=== PATIENT | male | born 1970 | race African-American/Black ===

== ENCOUNTER 2016-08-08 17:59 | Observation (INO) | payer OTHER ==
[~2016-08-08] VITALS: Ht 170.2 cm; Wt 206.3 kg
[~2016-08-08 17:59] MED LIST: ADVAIR; ADVAIR 100/501 DISK IH; ADVAIR HFA120 INHALA IH; ALBUTEROL17 GM; ASPIR 8181 M1 PO; CARVEDILOL12.5 MG PO; CEFTIN500 MG PO; CODEINE-GUAIFE120 ML PO; COMBIVENT INH14.7 GM; COMBIVENT RESPIM4 GM IH; DOXYCYCLINE HY100 MG PO; FORADIL AEROLI12 MCG IH; FURO40I IV; FUROSEMIDE40 MG PO; HYCODAN SYRUP480 ML PO; INDOMETHACIN50 MG PO; KLOR-CON 1010 ME1 PO; LASIX40 MG PO; LISINOPRIL5 MG PO; Norvasc PO; PERCOCET 10-321 EACH; PERCOCET 5/31 TABLET PO; POTASSIUM CHLO10 ME3 PO; PREDNISONE10 MG PO; PROVENTIL,2.5 MG/3 M IH; SPIRIVA1 INHALATI IH; ZOCOR5 MG PO; Zithromax PO
[2016-08-08 19:13] LABS: HEMATOCRIT 45.9 % (38.0-50.0); MCHC 28.8 G/DL (30.0-36.0); MCV 86.8 FL (86-99); MEAN PLAT.VOLUME 10.9 uM^3 (9.0-12.4); PLATELET COUNT 366 K/uL (156-360); RBC DIS.WIDTH-CV 17.6 % (11.8-14.6); RBC DIS.WIDTH-SD 55.9 % (39-53); RED BLOOD COUNT 5.29 M/uL (4.00-5.50); WHITE BLOOD COUNT 11.8 K/uL (4.1-10.2)
[2016-08-08 19:32] LABS: CHLORIDE 101 mEq/L (99-109); POTASSIUM 3.9 mEq/L (3.7-5.4); SODIUM 140 mEq/L (136-147)
[2016-08-08 19:34] LABS: GLUCOSE 105 mg/dL (70-99)
[2016-08-08 19:35] LABS: ANION GAP 9 MEQ/L (2-14)
[2016-08-08 19:38] LABS: GFR ESTIMATE (CALCULATED) > 59 mL/min/
[2016-08-08 19:39] LABS: UREA NITROGEN (BUN) 14 mg/dL (9-23)
[2016-08-08 19:43] LABS: TROP-I INTERPRETATION NEGATIVE; TROPONIN-I 0.04 ng/mL (0.0-0.30)
[2016-08-08] MEDS ORDERED: SPIRIVA1 INHALATI IH (21:24)
[2016-08-08] MEDS ORDERED: LIPITOR40 MG PO (21:24)
[2016-08-08] MEDS ORDERED: POTASSIUM CHLO10 ME4 PO (21:25)
[2016-08-08] MEDS ORDERED: PERCOCET 10/1 TABLET PO (21:25)
[2016-08-08] MEDS ORDERED: COLCRYS0.6 MG PO (21:26)
[2016-08-08] MEDS ORDERED: FUROSEMIDE40 MG PO (21:26)
[2016-08-08] MEDS ORDERED: ATENOLOL50 MG PO (21:26)
[2016-08-08] MEDS ORDERED: VENTOLIN HFA18 GM IH (21:27)
[2016-08-08] MEDS ORDERED: SYMBICORT60 INHALAT IH (21:27)
[2016-08-09 02:04] VITALS: BP 136/89
[2016-08-09 02:39] LABS: D-DIMER ELISA 0.76 mg/L FEU (< 0.57)
[2016-08-09 02:48] LABS: TROP-I INTERPRETATION NEGATIVE; TROPONIN-I 0.03 ng/mL (0.0-0.30)
[2016-08-09 07:48] VITALS: BP 134/76
[2016-08-09 10:15] LABS: TROP-I INTERPRETATION NEGATIVE; TROPONIN-I < 0.01 ng/mL (0.0-0.30)
[2016-08-09 11:49] LABS: POINT-OF-CARE METER ID UU14149397
[2016-08-09 12:00] VITALS: BP 160/97
[2016-08-09] MEDS ORDERED: PREDNISONE20 MG PO (15:50)
[2016-08-09] MEDS ORDERED: LEVOFLOXACIN500 MG PO (15:50)
[2016-08-09 16:00] VITALS: BP 161/77
[2016-08-09 16:57] LABS: POINT-OF-CARE METER ID UU14149397
== END 2016-08-09 18:38 | disposition home or self-care (01) ==
LOC: EME 17:59 → EDOF 08-09 00:01 → 3EAST 08-09 01:25
PROVIDERS: Emergency Medicine; Internal Medicine
DX: J20.9 Acute bronchitis, unspecified (principal); J44.9 Chronic obstructive pulmonary disease, unspecified; R09.02 Hypoxemia; F12.90 Cannabis use, unspecified, uncomplicated; E66.2 Morbid (severe) obesity with alveolar hypoventilation; Z68.45 Body mass index [BMI] 70 or greater, adult; Z99.81 Dependence on supplemental oxygen; I10 Essential (primary) hypertension; G47.33 Obstructive sleep apnea (adult) (pediatric); I25.5 Ischemic cardiomyopathy; J45.909 Unspecified asthma, uncomplicated; Z87.891 Personal history of nicotine dependence
CPT/HCPCS: 71010; 80048; 82948; 83605; 84484; 85027; 85379; 87040; 93005; 94640; 94640 76; 94799; 99202; 99281; 99285; G0378; G8978 GP CI; G8979 GP CH; J1650; J1956; J7512

== ENCOUNTER 2017-06-03 04:50 | Inpatient (IN) | payer OTHER ==
[~2017-06-03] VITALS: Ht 170.2 cm; Wt 196.4 kg
[~2017-06-03 04:50] MED LIST changes: +ATENOLOL50 MG PO; +COLCRYS0.6 MG PO; +LEVOFLOXACIN500 MG PO; +LIPITOR40 MG PO; +PERCOCET 10/1 TABLET PO; +POTASSIUM CHLO10 ME4 PO; +PREDNISONE20 MG PO; +PROAIR HFA8.5 GM IH; +SYMBICORT60 INHALAT IH
[2017-06-03 05:34] LABS: HEMATOCRIT 42.7 % (38.0-50.0); HEMOGLOBIN 12.9 G/DL (12.5-16.6); MCH 26.3 PG (29.0-34.0); MCHC 30.2 G/DL (30.0-36.0); PLATELET COUNT 448 K/uL (156-360); RBC DIS.WIDTH-SD 50.7 % (39-53); RED BLOOD COUNT 4.91 M/uL (4.00-5.50); WHITE BLOOD COUNT 10.2 K/uL (4.1-10.2)
[2017-06-03 05:43] LABS: ALBUMIN 3.1 g/dL (3.2-4.8); CHLORIDE 106 mEq/L (99-109); POTASSIUM 3.9 mEq/L (3.7-5.4); SODIUM 143 mEq/L (136-147)
[2017-06-03 05:45] LABS: GLUCOSE 130 mg/dL (70-99); TOTAL PROTEIN 7.6 g/dL (6.4-8.3)
[2017-06-03 05:47] LABS: TOTAL BILIRUBIN 0.2 mg/dL (0.0-1.0)
[2017-06-03 05:49] LABS: ALKALINE PHOSPHATASE 79 IU/L (3-129); CREATININE 1.1 mg/dL (0.6-1.3); GFR ESTIMATE (CALCULATED) > 59 mL/min/ (58.99-99999)
[2017-06-03 05:50] LABS: UREA NITROGEN (BUN) 11 mg/dL (9-23)
[2017-06-03 05:51] LABS: AST (GOT) 10 IU/L (2-34)
[2017-06-03 05:52] LABS: ALT (GPT) 8 IU/L (3-49)
[2017-06-03 05:56] LABS: TROP-I INTERPRETATION NEGATIVE; TROPONIN-I 0.02 ng/mL (0.0-0.30)
[2017-06-03] MEDS ORDERED: LISINOPRIL10 MG PO (10:11)
[2017-06-03] MEDS ORDERED: PANTOPRAZOLE SO40 MG PO (10:12)
[2017-06-03] MEDS ORDERED: GABAPENTIN800 MG PO (10:12)
[2017-06-03] MEDS ORDERED: METFORMIN HCL500 MG PO (10:13)
[2017-06-03 12:29] LABS: TROP-I INTERPRETATION NEGATIVE; TROPONIN-I 0.02 ng/mL (0.0-0.30)
[2017-06-03 13:09] VITALS: BP 144/73
[2017-06-03 15:10] VITALS: BP 157/85
[2017-06-03 19:27] LABS: TROP-I INTERPRETATION NEGATIVE; TROPONIN-I 0.03 ng/mL (0.0-0.30)
[2017-06-03 20:00] VITALS: BP 144/66
[2017-06-04] VITALS (7 sets, daily range): BP systolic 131–171; BP diastolic 58–90
[2017-06-04 07:01] LABS: HEMATOCRIT 42.9 % (38.0-50.0); HEMOGLOBIN 12.5 G/DL (12.5-16.6); MCH 25.8 PG (29.0-34.0); MCHC 29.1 G/DL (30.0-36.0); MCV 88.5 FL (86-99); PLATELET COUNT 393 K/uL (156-360); RBC DIS.WIDTH-CV 16.3 % (11.8-14.6); RBC DIS.WIDTH-SD 52.8 % (39-53); RED BLOOD COUNT 4.85 M/uL (4.00-5.50); WHITE BLOOD COUNT 12.5 K/uL (4.1-10.2)
[2017-06-04 07:19] LABS: INTER. NORMALIZED RATIO 1.1
[2017-06-04 07:22] LABS: PTT 29.4 SEC (25-37)
[2017-06-04 07:25] LABS: CHLORIDE 102 MEQ/L (99-109); GFR ESTIMATE (CALCULATED) > 59 mL/min/ (58.99-99999); GLUCOSE 121 mg/dL (70-99); POTASSIUM 4.5 MEQ/L (3.7-5.4); SODIUM 143 MEQ/L (136-147); UREA NITROGEN (BUN) 12 mg/dL (9-23)
[2017-06-05 03:45] VITALS: BP 154/71
[2017-06-05 07:13] LABS: CHLORIDE 99 MEQ/L (99-109); CREATININE 1.3 MG/DL (0.6-1.3); GFR ESTIMATE (CALCULATED) > 59 mL/min/ (58.99-99999); GLUCOSE 169 mg/dL (70-99); POTASSIUM 4.4 MEQ/L (3.7-5.4); SODIUM 139 MEQ/L (136-147); UREA NITROGEN (BUN) 15 mg/dL (9-23)
[2017-06-05 08:36] VITALS: BP 112/60
[2017-06-05 08:37] LABS: BASOPHIL (%) 0.3 % (0-1); BASOPHIL COUNT 0.1 K/uL (0-0.1); EOSINOPHIL (%) 0.3 % (0-5); EOSINOPHIL COUNT 0.1 K/uL (0-0.3); HEMATOCRIT 41.6 % (38.0-50.0); HEMOGLOBIN 12.1 G/DL (12.5-16.6); IMMATURE GRANULOCYTE (%) 0.4 % (0.0-0.7); LYMPHOCYTE (%) 11.5 % (15-42); LYMPHOCYTE COUNT 1.9 K/uL (1.0-2.8); MCH 25.3 PG (29.0-34.0); MCHC 29.1 G/DL (30.0-36.0); MONOCYTE (%) 12.8 % (3-12); MONOCYTE COUNT 2.1 K/uL (0-0.8); NEUTROPHIL (%) 74.7 % (45-76); NEUTROPHIL COUNT 12.5 K/uL (1.8-6.4); PLATELET COUNT 405 K/uL (156-360); RBC DIS.WIDTH-CV 15.7 % (11.8-14.6); RBC DIS.WIDTH-SD 50.4 % (39-53); RED BLOOD COUNT 4.78 M/uL (4.00-5.50); WHITE BLOOD COUNT 16.7 K/uL (4.1-10.2)
[2017-06-05 12:31] VITALS: BP 127/72
[2017-06-05 15:40] VITALS: BP 117/57
[2017-06-05 19:30] VITALS: BP 140/69
[2017-06-05 23:36] VITALS: BP 139/68
[2017-06-06 04:07] VITALS: BP 138/67
[2017-06-06 08:03] VITALS: BP 128/58
[2017-06-06 09:21] LABS: HEMATOCRIT 39.4 % (38.0-50.0); HEMOGLOBIN 11.5 G/DL (12.5-16.6); MCH 25.6 PG (29.0-34.0); MCHC 29.2 G/DL (30.0-36.0); MCV 87.6 FL (86-99); PLATELET COUNT 314 K/uL (156-360); RBC DIS.WIDTH-CV 15.7 % (11.8-14.6); RBC DIS.WIDTH-SD 50.5 % (39-53); WHITE BLOOD COUNT 8.5 K/uL (4.1-10.2)
[2017-06-06 09:47] LABS: CHLORIDE 98 MEQ/L (99-109); CREATININE 1.1 MG/DL (0.6-1.3); GFR ESTIMATE (CALCULATED) > 59 mL/min/ (58.99-99999); GLUCOSE 155 mg/dL (70-99); POTASSIUM 3.9 MEQ/L (3.7-5.4); SODIUM 136 MEQ/L (136-147); UREA NITROGEN (BUN) 17 mg/dL (9-23)
[2017-06-06 16:00] VITALS: BP 111/68
[2017-06-06 16:43] LABS: TROP-I INTERPRETATION NEGATIVE; TROPONIN-I 0.02 ng/mL (0.0-0.30)
[2017-06-06 19:59] VITALS: BP 121/70
[2017-06-06 23:51] VITALS: BP 178/65
[2017-06-07 03:44] VITALS: BP 175/70
[2017-06-07 06:27] LABS: HEMATOCRIT 40.1 % (38.0-50.0); HEMOGLOBIN 11.7 G/DL (12.5-16.6); MCH 25.5 PG (29.0-34.0); MCHC 29.2 G/DL (30.0-36.0); MCV 87.4 FL (86-99); PLATELET COUNT 328 K/uL (156-360); RBC DIS.WIDTH-CV 15.5 % (11.8-14.6); RBC DIS.WIDTH-SD 49.8 % (39-53); RED BLOOD COUNT 4.59 M/uL (4.00-5.50); WHITE BLOOD COUNT 7.9 K/uL (4.1-10.2)
[2017-06-07 06:59] LABS: CHLORIDE 100 MEQ/L (99-109); CREATININE 1.2 MG/DL (0.6-1.3); GFR ESTIMATE (CALCULATED) > 59 mL/min/ (58.99-99999); GLUCOSE 123 mg/dL (70-99); POTASSIUM 4.7 MEQ/L (3.7-5.4); SODIUM 137 MEQ/L (136-147); UREA NITROGEN (BUN) 18 mg/dL (9-23)
[2017-06-07 07:52] VITALS: BP 129/61
[2017-06-07 11:43] VITALS: BP 124/72
[2017-06-07 14:55] VITALS: BP 120/59
[2017-06-07 17:13] LABS: BASE EXCESS 7.9 mEq/L (-3 to +3); CARBOXY HGB 2.2 % (0-5); METHEMOGLOBIN 1.7 % (0-1.5); PO2 76 mm Hg (80-100); pH 7.32 (7.35-7.45)
[2017-06-07 17:14] LABS: BICARBONATE 36.1 mEq/L (22-26); COMMENTS - BLOOD GASES A+C+; DEVICE NC; O2 FLOW 4 L/MIN; PCO2 70 mm Hg (35-45); SITE LR
[2017-06-07 19:49] VITALS: BP 130/89
[2017-06-07 20:26] LABS: BASE EXCESS 8.4 mEq/L (-3 to +3); BICARBONATE 36.9 mEq/L (22-26); CARBOXY HGB 2.1 % (0-5); COMMENTS - BLOOD GASES C+A+; DEVICE BIPAP; METHEMOGLOBIN 1.4 % (0-1.5); O2 FLOW 8 L/MIN; PCO2 70 mm Hg (35-45); PO2 65 mm Hg (80-100); SITE RR; TOTAL RESP RATE 20 resp/min; pH 7.33 (7.35-7.45)
[2017-06-07 20:27] LABS: CONTINUOUS POS AIRWAY PRESSURE 20 cm H2O
[2017-06-07 23:47] VITALS: BP 136/92
[2017-06-08 03:59] VITALS: BP 133/76
[2017-06-08 07:02] VITALS: BP 149/86
[2017-06-08 15:13] VITALS: BP 151/79
[2017-06-08 17:41] LABS: C DIFF TOXIN NEGATIVE (NEGATIVE)
[2017-06-09] VITALS: BP 142/82
[2017-06-09 08:01] VITALS: BP 159/103
[2017-06-09 11:24] VITALS: BP 135/83
[2017-06-09] MEDS ORDERED: FUROSEMIDE80 MG PO (14:30)
[2017-06-09] MEDS ORDERED: PREDNISONE5 M1 PO (14:30)
[2017-06-09] MEDS ORDERED: CARVEDILOL3.125 MG PO (14:30)
[2017-06-09] MEDS ORDERED: MUCINEX600 MG PO (14:30)
[2017-06-09 16:17] VITALS: BP 161/83
[2017-06-09] MEDS ORDERED: AUGMENTIN875 MG PO (17:03)
[2017-06-09 23:29] VITALS: BP 175/95
[2017-06-10 07:44] VITALS: BP 148/71
[2017-06-10 09:04] LABS: HEMATOCRIT 41.5 % (38.0-50.0); HEMOGLOBIN 12.4 G/DL (12.5-16.6); MCH 25.7 PG (29.0-34.0); MCHC 29.9 G/DL (30.0-36.0); MCV 85.9 FL (86-99); PLATELET COUNT 308 K/uL (156-360); RBC DIS.WIDTH-CV 15.3 % (11.8-14.6); RBC DIS.WIDTH-SD 47.8 % (39-53); RED BLOOD COUNT 4.83 M/uL (4.00-5.50); WHITE BLOOD COUNT 11.2 K/uL (4.1-10.2)
[2017-06-10 09:31] LABS: CHLORIDE 100 MEQ/L (99-109); CREATININE 0.9 MG/DL (0.6-1.3); GFR ESTIMATE (CALCULATED) > 59 mL/min/ (58.99-99999); GLUCOSE 196 mg/dL (70-99); MAGNESIUM 1.9 mg/dl (1.3-2.7); SODIUM 140 MEQ/L (136-147); UREA NITROGEN (BUN) 18 mg/dL (9-23)
[2017-06-10 09:43] LABS: BASOPHIL (%) 0.3 % (0-1); EOSINOPHIL (%) 0.1 % (0-5); IMMATURE GRANULOCYTE (%) 0.8 % (0.0-0.7); LYMPHOCYTE (%) 21.9 % (15-42); LYMPHOCYTE COUNT 2.5 K/uL (1.0-2.8); MONOCYTE (%) 6.6 % (3-12); MONOCYTE COUNT 0.7 K/uL (0-0.8); NEUTROPHIL (%) 70.3 % (45-76); NEUTROPHIL COUNT 7.9 K/uL (1.8-6.4)
== END 2017-06-10 15:37 | disposition home or self-care (01) | DRG 189 ==
LOC: EME 04:50 → EDOF 08:55 → 5SOUTH 08:55 → ENRESERV 08:57 → 5SOUTH 12:38 → ENPENDDIS 06-10 11:54 → 5SOUTH 06-10 15:37
PROVIDERS: Emergency Medicine; Internal Medicine; Physician Assistant; Physician Assistant Medical; Student in an Organized Health Care Education/Training Program
DX: J96.01 Acute respiratory failure with hypoxia (principal); I11.0 Hypertensive heart disease with heart failure; I50.23 Acute on chronic systolic (congestive) heart failure; I42.9 Cardiomyopathy, unspecified; G47.33 Obstructive sleep apnea (adult) (pediatric); I31.3 Pericardial effusion (noninflammatory); R94.31 Abnormal electrocardiogram [ECG] [EKG]; J44.9 Chronic obstructive pulmonary disease, unspecified; J18.9 Pneumonia, unspecified organism; E11.9 Type 2 diabetes mellitus without complications; R53.83 Other fatigue; E66.01 Morbid (severe) obesity due to excess calories; E66.2 Morbid (severe) obesity with alveolar hypoventilation; G89.29 Other chronic pain; E87.2 Acidosis; K21.9 Gastro-esophageal reflux disease without esophagitis; I42.8 Other cardiomyopathies; Y95 Nosocomial condition; Z87.891 Personal history of nicotine dependence; Z68.44 Body mass index [BMI] 60.0-69.9, adult; Z99.81 Dependence on supplemental oxygen
CPT/HCPCS: 36600; 71045; 71046; 71275; 80048; 80053; 80202; 82803; 82948; 83735; 83880; 84484; 85025; 85027; 85379; 85610; 85652; 85730; 87070; 87205; 87493; 87641; 93005; 93306; 93308; 94640; 94640 76; 94660; 94760; 94799; 99202; 99281; 99285; J0456; J1650; J1940; J2270; J2405; J2543; J2920; J2930; J3370; J7050; J7512

== ENCOUNTER 2017-06-22 23:22 | Emergency (ER) | payer OTHER ==
[~2017-06-22] VITALS: Ht 170.2 cm; Wt 215.9 kg
[~2017-06-22 23:22] MED LIST changes: +AUGMENTIN875 MG PO; +CARVEDILOL3.125 MG PO; +FUROSEMIDE80 MG PO; +GABAPENTIN800 MG PO; +LISINOPRIL10 MG PO; +METFORMIN HCL500 MG PO; +MUCINEX600 MG PO; +PANTOPRAZOLE SO40 MG PO; +PREDNISONE5 M1 PO
[2017-06-22 23:58] LABS: BASOPHIL (%) 0.3 % (0-1); EOSINOPHIL (%) 1.7 % (0-5); EOSINOPHIL COUNT 0.2 K/uL (0-0.3); HEMATOCRIT 41.1 % (38.0-50.0); HEMOGLOBIN 12.6 G/DL (12.5-16.6); IMMATURE GRANULOCYTE (%) 0.5 % (0.0-0.7); LYMPHOCYTE (%) 21.2 % (15-42); LYMPHOCYTE COUNT 2.3 K/uL (1.0-2.8); MCH 26.1 PG (29.0-34.0); MCHC 30.7 G/DL (30.0-36.0); MCV 85.1 FL (86-99); MONOCYTE (%) 8.9 % (3-12); NEUTROPHIL (%) 67.4 % (45-76); NEUTROPHIL COUNT 7.4 K/uL (1.8-6.4); PLATELET COUNT 354 K/uL (156-360); RBC DIS.WIDTH-CV 16.5 % (11.8-14.6); RBC DIS.WIDTH-SD 51.1 % (39-53); RED BLOOD COUNT 4.83 M/uL (4.00-5.50)
[2017-06-23 00:08] LABS: CHLORIDE 105 mEq/L (99-109); POTASSIUM 3.7 mEq/L (3.7-5.4); SODIUM 142 mEq/L (136-147)
[2017-06-23 00:10] LABS: GLUCOSE 147 mg/dL (70-99)
[2017-06-23 00:14] LABS: GFR ESTIMATE (CALCULATED) > 59 mL/min/ (58.99-99999); UREA NITROGEN (BUN) 12 mg/dL (9-23)
[2017-06-23 00:16] LABS: URIC ACID 9.2 mg/dL (3.1-9.2)
[2017-06-23] MEDS ORDERED: MOTRIN800 MG PO (01:40)
[2017-06-23] MEDS ORDERED: NORCO 5/3251 TABLET PO (01:40)
[2017-06-23] MEDS ORDERED: MITIGARE0.6 MG PO (01:45)
[2017-06-23 03:30] VITALS: BP 117/72
== END 2017-06-23 03:32 | disposition home or self-care (01) ==
LOC: EME 23:22
PROVIDERS: Emergency Medicine
DX: M10.9 Gout, unspecified (principal); Z99.81 Dependence on supplemental oxygen; I50.9 Heart failure, unspecified; I11.0 Hypertensive heart disease with heart failure; J44.9 Chronic obstructive pulmonary disease, unspecified; G47.30 Sleep apnea, unspecified; F17.200 Nicotine dependence, unspecified, uncomplicated; E66.01 Morbid (severe) obesity due to excess calories
CPT/HCPCS: 73630; 80048; 84550; 85025; 99281; 99285; J2270